=== PATIENT | female | born 1960 | race Hispanic/Latino ===

== ENCOUNTER → 2017-08-03 | Outpatient (CLI) | payer MEDICARE ==
[~2017-08-03] MED LIST: ALBU2.5V2 IH; ALBU8.5H8 IH; AMLO10TA4 PO; ASPI-555 PO; CARV12.580 PO; DOXY100C2 PO; FLUT16H NASAL; HYDR-4068 PO; LEVO25TA54 PO; LEVO500T89 PO; MONT10TA21 PO; PHOSLOC PO; PROM12.510 PO; REGADENOSON 0.4 MG/5 ML PF SYG IVP SCH; ZOLP5TAB8 PO
== END | disposition home or self-care (01) ==
LOC: SHCH 09:43
PROVIDERS: ATTEND Internal Medicine Cardiovascular Disease
DX: Z01.810 Encounter for preprocedural cardiovascular examination (principal); R51 Headache; R06.00 Dyspnea, unspecified; R11.0 Nausea
CPT/HCPCS: 78452; 93017; 96374; A9500 ×2; J2785

== ENCOUNTER → 2020-12-01 | Outpatient (CLI) | payer MEDICAID ==
[~2020-12-01] MED LIST changes: -ASPI-555 PO; +ASPI-556 PO; -PROM12.510 PO; +PROM12.513 PO; -REGADENOSON 0.4 MG/5 ML PF SYG IVP SCH
== END | disposition home or self-care (01) ==
LOC: RAH 15:04
PROVIDERS: ATTEND Urology
DX: R31.0 Gross hematuria (principal); Z94.0 Kidney transplant status
CPT/HCPCS: 76770

== ENCOUNTER → 2022-04-21 | Outpatient (CLI) | payer MEDICAID ==
[~2022-04-21] MED LIST changes: -DOXY100C2 PO; +DOXY100C5 PO; +LEVO-70 PO; -LEVO500T89 PO
== END | disposition home or self-care (01) ==
LOC: RAH 09:29
PROVIDERS: ATTEND Family Medicine
DX: R22.42 Localized swelling, mass and lump, left lower limb (principal)
CPT/HCPCS: 73718

== ENCOUNTER → 2022-12-02 | Outpatient (CLI) | payer MEDICAID ==
[~2022-12-02] MED LIST changes: +MONT-47 PO; -MONT10TA21 PO
[2022-12-02 16:32] LABS: BASOPHILS % (AUTO) 0.6 % (0.0-5.0); EOSINOPHILS % (AUTO) 0.6 % (0.0-8.0); HEMATOCRIT 40.2 % (36-48); LYMPHOCYTES % (AUTO) 10.2 % (21.0-51.0); MEAN CORPUSCULAR HEMOGLOBIN 31.6 pg (27.0-33.0); MEAN CORPUSCULAR HGB CONC 33.8 g/dL (32.0-36.0); MEAN CORPUSCULAR VOLUME 93.5 fL (79-99); MONOCYTES % (AUTO) 4.9 % (3.0-13.0); NEUTROPHILS % (AUTO) 83.4 % (40.0-77.0); PLATELET COUNT (AUTO) 205 K/uL (130-400); WHITE BLOOD COUNT (AUTO) 7.1 K/uL (4.8-10.8)
[2022-12-02 16:46] LABS: INR 0.93 (0.85-1.15); PROTHROMBIN TIME 10.3 SEC (9.6-11.6)
[2022-12-02 16:48] LABS: PARTIAL THROMBOPLASTIN TIME 25.1 SEC (26.3-35.5)
[2022-12-02 18:23] LABS: ALBUMIN 4.3 g/dL (3.5-5.0); CREATININE 0.6 mg/dL (0.5-1.5); POTASSIUM 3.4 mmol/L (3.5-5.1); TOTAL PROTEIN, SERUM 7.4 g/dL (6.0-8.3)
== END | disposition home or self-care (01) ==
LOC: LAB 10:00 → EDSTATUS 12-07 16:42
PROVIDERS: ATTEND Surgery
DX: Z01.818 Encounter for other preprocedural examination (principal); A63.0 Anogenital (venereal) warts; Z20.822 Contact with and (suspected) exposure to COVID-19
CPT/HCPCS: 93005; 87426; 80053; 85025; 85610; 85730; 36415; A6260

== ENCOUNTER → 2023-10-27 | Outpatient (CLI) | payer OTHER, MEDICARE | END | disposition home or self-care (01) | LOC: RAH 15:06 | PROVIDERS: ATTEND Family Medicine | DX: M25.561 Pain in right knee (principal); M25.531 Pain in right wrist | CPT/HCPCS: 73110; 73562 ==

== ENCOUNTER → 2023-11-17 | Outpatient (CLI) | payer OTHER, MEDICARE | END | disposition home or self-care (01) | LOC: RAH 12:39 | PROVIDERS: ATTEND Family Medicine | DX: M19.011 Primary osteoarthritis, right shoulder (principal); M25.561 Pain in right knee; M75.121 Complete rotator cuff tear or rupture of right shoulder, not specified as traumatic; M25.621 Stiffness of right elbow, not elsewhere classified; M25.711 Osteophyte, right shoulder | CPT/HCPCS: 73221; 73721 ==

== ENCOUNTER → 2023-11-27 | Outpatient (CLI) | payer OTHER, MEDICARE | END | disposition home or self-care (01) | LOC: RAH 15:24 | PROVIDERS: ATTEND Family Medicine | DX: M85.68 Other cyst of bone, other site (principal); M25.531 Pain in right wrist | CPT/HCPCS: 73221 ==

== ENCOUNTER → 2024-05-07 | Outpatient (CLI) | payer MEDICARE, OTHER ==
--- NOTE | 2024-05-07 16:31 | HMCIMG ---
Exam: NONCONTRAST CT BRAIN REASON: CARBUNCLE OF HEAD. COMPARISON: None. TECHNIQUE: Images are obtained from vertex to the skull base. The exam was performed without IV contrast. FINDINGS: There is normal appearing brain parenchyma. There are no focal mass lesions. There is is no evidence of intracranial hemorrhage or acute stroke. Ventricles and sulci appear normal. Posterior fossa and brainstem structures are unremarkable. Paranasal sinuses and remaining extracranial soft tissues appear normal as well.There are no visible focal scalp lesions. IMPRESSION: 1. Normal noncontrast CT brain. CT was performed with one or more following dose reduction techniques: automated exposure control, adjustment of the mA and kv according to patient's size, or use of a iterative reconstruction technique.
== END | disposition home or self-care (01) ==
LOC: RAH 15:10
PROVIDERS: ATTEND Family Medicine
DX: L02.831 Carbuncle of head [any part, except face] (principal)
CPT/HCPCS: 70450

== ENCOUNTER 2024-06-24 06:48 | Day surgery (SDC) | payer OTHER, MEDICARE ==
--- NOTE | 2024-06-20 09:33 | EKG ---
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
[2024-06-20 09:41] LABS: BASOPHILS # (AUTO) 0.03 K/uL (0.00-0.20); BASOPHILS % (AUTO) 0.6 % (0.0-5.0); EOSINOPHILS # (AUTO) 0.11 K/uL (0.00-0.70); EOSINOPHILS % (AUTO) 2.2 % (0.0-8.0); IMMATURE GRANULOCYTE ABSOLUTE 0.01 K/uL (0-1); LYMPHOCYTES # (AUTO) 0.6 K/uL (1.0-4.8); LYMPHOCYTES % (AUTO) 12.9 % (21.0-51.0); MEAN CORPUSCULAR HEMOGLOBIN 31.9 pg (27.0-33.0); MEAN CORPUSCULAR HGB CONC 33.5 g/dL (32.0-36.0); MEAN CORPUSCULAR VOLUME 95.2 fL (79-99); MONOCYTES # (AUTO) 0.4 K/uL (0.1-1.0); NEUTROPHILS # (AUTO) 3.8 K/uL (1.8-7.7); NEUTROPHILS % (AUTO) 77.1 % (40.0-77.0); PLATELET COUNT (AUTO) 161 K/uL (130-400); RED BLOOD CELL COUNT(AUTO) 3.57 MIL/uL (4.00-5.50); RED CELL DISTRIBUTION WIDTH 12.3 % (11.0-15.5)
[2024-06-20 09:49] LABS: CREATININE 0.7 mg/dL (0.5-1.0); POTASSIUM 4.3 mmol/L (3.5-5.1)
[2024-06-20 09:50] LABS: INR 0.99 (0.85-1.15); PROTHROMBIN TIME 11.1 SEC (9.6-11.6)
[2024-06-20 09:51] LABS: PARTIAL THROMBOPLASTIN TIME 25.9 SEC (26.3-35.5)
[2024-06-20 10:06] VITALS: BP 110/48; PULSE 68; RESP 19; TEMP 97.9
[~2024-06-24] VITALS: Ht 154.9 cm; Wt 63.3 kg
[2024-06-24] VITALS (14 sets, daily range): BP systolic 61–127; BP diastolic 53–61; PULSE 65–80; RESP 14–18; TEMP 96.9–97.5
[~2024-06-24 06:48] MED LIST changes: -AMLO10TA4 PO; -ASPI-556 PO; +AZEL137S11 NASAL; -CARV12.580 PO; +CINACALCET PO; +CYCL30DR OP; +DENO60DI SQ; +DOCU100C33 PO; +GABA300C PO; -LEVO25TA54 PO; +LEVO75CA5 PO; +LORA10TA7 PO; +LOSA100T59 PO; +LOTE8.3D OP; +MAGN400C PO; +MYCO250C36 PO; +NITR0.4T SL; +ONDA-243 PO; +PANT40TA54 PO; +PHARMACY COMMUNICATION MISC SCH; -PHOSLOC PO; -PROM12.513 PO; +SEMA1PEN3 SQ; +TIZA4CAP8 PO; +TRAM100T34 PO; +VARE0.03 NS; +ZINC220T4 PO; +elderberry PO; +estradiol VG; +hair skin nails PO; +prograf PO; +vit b 12 PO
[2024-06-24] MEDS: 0.9% NACL 500ML IV.SOLN 0 ML IV ONE (07:03)
[2024-06-24] MEDS: CLINDAMYCIN IVPB 900MG/50ML 50 ML IV ONE (07:03)
[2024-06-24] MEDS ORDERED: LIDOCAINE HCL 1% 20 ML VIAL ONE (07:57)
[2024-06-24] MEDS ORDERED: MIDAZOLAM HCL 1 MG/ML 2ML VIAL ONE (08:32)
[2024-06-24] MEDS ORDERED: rocuRONium bROMide 10MG/1ML 5ML VL ONE (08:34)
[2024-06-24] MEDS ORDERED: proPOFol 10 MG/ML 20ML VIAL IV ONE (08:34)
[2024-06-24] MEDS ORDERED: LIDOCAINE PF 100MG/5ML (2%) SYRINGE 5ML ONE (08:34)
[2024-06-24] MEDS ORDERED: FENTanyl CITRate PF 50 MCG/1 ML 2ML VIAL ONE (08:34)
[2024-06-24] MEDS ORDERED: GLYCOPYRROLATE 0.2 MG/ML 5 ML VIAL ONE (08:34)
[2024-06-24] MEDS ORDERED: NEOSTIGMINE METHYLSULFATE 1MG/ML IV ONE (08:34)
[2024-06-24] MEDS: BUPIvacaine/PF 0.5% 30ML VIAL ONE (08:45)
[2024-06-24] MEDS ORDERED: ePHEDrine SULFate 50 MG/ML AMPULE ONE (08:47)
--- NOTE | 2024-06-24 09:12 | OP ---
Operative Note: DATE OF PROCEDURE: 06/24/24 SURGEON: ADRIANA POOLE MD [employer] SUPERVISOR: [] ANESTHESIA: [] General ANESTHESIOLOGIST/NET DEVELOPER CONTRACT: [] PREOPERATIVE DIAGNOSIS: [] Scalp cyst POSTOPERATIVE DIAGNOSIS: [] Scalp bony cyst SYNOPSIS: [] PROCEDURE: [] Exploration of the scalp ESTIMATED BLOOD LOSS: [] INDICATIONS: [] DESCRIPTION OF PROCEDURE: [] With the patient under general anesthesia with the incision over lump over the top of the skull. Using cautery and blunt di ssection I was able to explore and there was a bony structure protruding to the skull. This was not possible to be removed by simple maneuvers. After trying to dissected around and seen that this was in continuation with the scope I thought it was better not to proceed to try to do more aggressive exploration or dissection. After adequate anesthesia I placed a 10 cc of Marcaine and closed the wound with the Prolene sutures interrupted. Procedure was completed without any complication ADRIANA POOLE MD Jun 24, 2024 09:12
[2024-06-24] MEDS: 0.9%NACL 1000ML 1,000 ML IV ONE (09:15)
--- NOTE | 2024-06-24 11:00 | NUR ---
FULL AND COMPLETE DISCHARGE INSTRUCTIONS GIVEN BOTH VERBALLY AND IN WRITING TO PATIENT AND FAMILY. ALL QUESTIONS ANSWERED. PIV REMOVED WITH CATHETER TIP INTACT. DENIES CURRENT PAIN OR NAUSEA. VOICED UNDERSTANDING TO SURGICAL INCISION INSTRUCTIOS AND FOLLOW UP. W/C TO POV WITH FAMILY TO HOME.
== END 2024-06-24 11:00 | disposition home or self-care (01) ==
LOC: DAH 06:48
PROVIDERS: ATTEND Surgery
DX: M85.60 Other cyst of bone, unspecified site (principal); R22.0 Localized swelling, mass and lump, head; I10 Essential (primary) hypertension; E11.9 Type 2 diabetes mellitus without complications; J45.909 Unspecified asthma, uncomplicated; Z90.710 Acquired absence of both cervix and uterus; Z87.898 Personal history of other specified conditions; Z88.0 Allergy status to penicillin; Z88.8 Allergy status to other drugs, medicaments and biological substances; Z79.82 Long term (current) use of aspirin; Z79.899 Other long term (current) drug therapy; Z79.01 Long term (current) use of anticoagulants
CPT/HCPCS: 80048; 85025; 85610; 85730; 36415; 93005; 21014; 82948 ×2; A4223 ×2; A6260; A4663; J7030 ×2; A4649; J3490 ×4; J2003; J2250; J2704; J2710; J0665; A4215; A4222; A4221; A4216; A4450; J3010; J7040

== ENCOUNTER → 2025-05-14 | Outpatient (CLI) | payer OTHER, MEDICAID ==
[~2025-05-14] MED LIST changes: -LEVO75CA5 PO; +LEVO75CA6 PO; -PHARMACY COMMUNICATION MISC SCH; +ZOLP5TAB16 PO; -ZOLP5TAB8 PO
--- NOTE | 2025-05-14 13:11 | HMCIMG ---
EXAM: CR LUMBAR SPINE, 2 VIEWS CLINICAL HISTORY: Encounter for surgical after care following surgery on the nervous system. COMPARISON: None provided TECHNIQUE: Frontal and lateral radiographs of the lumbosacral spine were obtained. FINDINGS: Vertebrae: Preserved vertebral body height. The bones appear osteopenic. No acute fracture of the lumbar spine. Evidence of prior laminectomy at L4, L5 levels with transpedicular fixation screws and plates visualized bilaterally at these levels, without displacement. A spinal stimulator implant is visualized on the left side with its electrodes entering the spinal canal at the axial level of T9. Vertebral alignment: There is grade I anterolisthesis of L4 over L5 without spondylolysis. There is preservation of the normal lumbar lordosis. Discs/Degenerative Changes: There is reduction of the intervertebral disc space height, most severe at L3-L4, L4-L5 levels. Anterior and posterior marginal osteophytes, endplate sclerotic changes, facet arthropathy at multiple levels. Appropriately positioned disc spacer is present at L5-S1 level. Included abdomen: Surgical clips overlying the right upper abdomen, possibly post-cholecystectomy state. There is fecal matter loading of the colon. There is an old, healed fracture of the superior pubic ramus on the left side. No pathologic calcifications observed. Included bowel gas pattern is non-obstructive. IMPRESSION: 1. No acute lumbar spine fracture. 2. Grade I anterolisthesis of L4 over L5 without spondylolysis. 3. Reduction of intervertebral disc space height at multiple levels, most severe at L3-L4 and L4-L5, with multilevel degenerative changes including anterior/posterior marginal osteophytes, endplate sclerosis, and facet arthropathy. 4. Evidence of prior laminectomy at L4 and L5 with bilateral transpedicular fixation screws and leads without displacement; appropriately positioned disc spacer at L5-S1. 5. Spinal stimulator implant on the left with electrodes indenting the spinal canal at T9. 6. Osteopenia with additional chronic and incidental findings as detailed in the body of the report. /[place]
== END | disposition home or self-care (01) ==
LOC: RAH 07:36
PROVIDERS: ATTEND Neurological Surgery
DX: M47.816 Spondylosis without myelopathy or radiculopathy, lumbar region (principal); G89.18 Other acute postprocedural pain; M43.16 Spondylolisthesis, lumbar region; M51.369 Other intervertebral disc degeneration, lumbar region without mention of lumbar back pain or lower extremity pain; M25.78 Osteophyte, vertebrae; M51.379 Other intervertebral disc degeneration, lumbosacral region without mention of lumbar back pain or lower extremity pain; Z48.811 Encounter for surgical aftercare following surgery on the nervous system; Z98.890 Other specified postprocedural states
CPT/HCPCS: 72100